=== PATIENT | male | born 2000 | race African-American/Black ===

== ENCOUNTER 2018-06-23 11:59 | Day surgery (SDC) | payer OTHER ==
[2018-06-23 14:28] LABS: ADD MAN DIFF? NO
[2018-06-23 14:31] LABS: BASOPHILS % 0.9 % (0.0-2.0); EOSINOPHILS # 0.2 10^3/ul (0.0-0.5); EOSINOPHILS % 5.2 % (0.0-7.0); HEMATOCRIT 40.1 % (42.0-52.0); HEMOGLOBIN 14.1 g/dl (14.0-18.0); LYMPHOCYTES # 2.2 10^3/ul (0.8-2.9); LYMPHOCYTES % 47.4 % (18.0-55.0); MEAN CORPUSCULAR HEMOGLOBIN 28.3 pg (29.0-33.0); MEAN CORPUSCULAR HGB CONC 35.2 g/dl (32.0-37.0); MEAN CORPUSCULAR VOLUME 80.5 fl (72.0-104.0); MEAN PLATELET VOLUME 11.9 fl (7.4-10.4); MONOCYTE # 0.3 10^3/ul (0.3-0.9); NEUTROPHIL # 1.8 10^3/ul (1.6-7.5); NEUTROPHILS % 39.5 % (30.0-74.0); PLATELET COUNT 228 10^3/UL (140-415); RED BLOOD COUNT 4.98 10^6/ul (4.70-6.10)
[2018-06-23 14:31] LABS: WHITE BLOOD COUNT 4.6 10^3/ul (4.8-10.8)
[2018-06-23 14:37] LABS: ADD UMIC NO; UR ASCORBIC ACID NEGATIVE (NEGATIVE); UR BILIRUBIN (Dip) NEGATIVE (NEGATIVE); UR BLOOD (Dip) NEGATIVE (NEGATIVE); UR CLARITY CLEAR (CLEAR); UR COLOR STRAW (YELLOW); UR GLUCOSE (Dip) NEGATIVE (NEGATIVE); UR KETONES (Dip) NEGATIVE (NEGATIVE); UR LEUKOCYTE ESTERASE (Dip) NEGATIVE Leu/ul (NEGATIVE); UR NITRITE (Dip) NEGATIVE (NEGATIVE); UR TOTAL PROTEIN (Dip) NEGATIVE (NEGATIVE); UR UROBILINOGEN (Dip) NEGATIVE (NEGATIVE)
[2018-06-23] MEDS ORDERED: MIDAZOLAM 1 MG/ML 2 ML INJ (15:20)
[2018-06-23] MEDS ORDERED: FENTAnyl 50 MCG/ML VIAL (15:20)
[2018-06-23] MEDS ORDERED: ONDANSETRON 4 MG INJ (15:21)
[2018-06-23] MEDS ORDERED: LIDOCAINE 2% (SDV) 5 ML INJ (15:21)
[2018-06-23] MEDS ORDERED: PROPOFOL 20 ML (15:21)
[2018-06-23] MEDS ORDERED: CEFAZOLIN 1 GM INJ (15:21)
[2018-06-23] MEDS ORDERED: ONDANSETRON 4 MG INJ IV (16:30)
[2018-06-23] MEDS ORDERED: FENTAnyl 50 MCG/ML VIAL IV (16:30)
[2018-06-23] MEDS ORDERED: DIPHENHYDRAMINE 50 MG INJ IV (16:30)
[2018-06-23] MEDS ORDERED: HYDROmorphONE 1 MG/5 ML IV SYRINGE IV ×2 (16:30)
[2018-06-23] MEDS: POLYMYXIN/BACITRACIN 1L IRRIG IRR (17:13)
[2018-06-23] MEDS: LIDOCAINE 1%/EPI 30 ML INJ (17:13)
[2018-06-23] MEDS: BUPIVACAINE 0.25% (MPF) 30 ML INJ (17:13)
[2018-06-23] MEDS: MEPERIDINE 25 MG INJ IV (18:30)
[2018-06-23] MEDS: HYDROmorphONE 1 MG/5 ML IV SYRINGE IV (18:30)
[2018-06-23] MEDS: KETOROLAC 30 MG INJ IV (18:31)
[2018-06-23] MEDS: FENTAnyl 50 MCG/ML VIAL IV (18:31)
== END 2018-06-23 19:16 | disposition home or self-care (01) ==
LOC: SDS 11:59
DX: S62.326P Displaced fracture of shaft of fifth metacarpal bone, right hand, subsequent encounter for fracture with malunion (principal); X58.XXXD Exposure to other specified factors, subsequent encounter
CPT/HCPCS: 26615; 73140; 81003; 85025